=== PATIENT | female | born 1990 | race Caucasian/White ===

== ENCOUNTER 2023-06-16 20:06 | Outpatient (REF) | payer BC, SELFPAY ==
[2023-06-21 11:09] LABS: Age Gdln ACOG Testing Note (.); HPV Aptima Negative (Negative); IGP, Aptima HPV, rfx 16/18,45 Note (.)
== END 2023-06-16 20:07 | disposition home or self-care (01) ==
LOC: LAB 20:06
PROVIDERS: Visit Provider Obstetrics & Gynecology
DX: Z01.419 Encounter for gynecological examination (general) (routine) without abnormal findings (principal)
CPT/HCPCS: 87624; G0145

== ENCOUNTER 2023-10-20 14:43 | Emergency (ER) | payer BC, SELFPAY ==
[2023-10-20 14:49] VITALS: BP 161/90; PULSE 87; TEMP 36.8; O2SAT 99; BMI 31.6
--- OUTSIDE RECORDS SUMMARY | 2023-10-20 14:57 | XMS_ITS | CCD ---
Author Organization [facility] Care Team Providers Care Mold Sprayer Name Role Phone Debo Pedro Unavailable Unavailable Unavailable Primary Care Provider Bola Fowler Unavailable DR DEBO PEDRO Admitting Unavailable DR DEBO PEDRO Attending Unavailable DR VENKAT SWANN Primary Care Unavailable DR DEBO PEDRO Consulting Unavailable MEMO JIMENEZ Attending Unavailable MEMO JIMENEZ Attending Unavailable DEBO PEDRO Attending Unavailable MEMO JIMENEZ Attending Unavailable MEMO JIMENEZ Attending Unavailable Allergies Allergy Classification Reported Allergen(s) Allergy Type Date of Onset Reaction(s) Facility (2 sources) Codeine Drug Allergy 05-26-2013 [facility] (1 source) Codeine Drug Allergy 05-26-2013 [facility] Medications Current Medications Medication Drug Class(es) Dates Sig (Normalized) Sig (Original) citalopram 20 mg oral tablet (1 source) Serotonin Reuptake Inhibitor famotidine 40 mg oral tablet (1 source) Histamine-2 Receptor Antagonist sucralfate 1000 mg oral tablet (1 source) Aluminum Complex Problems Active Problems Problem Classification Problem Date Documented Date Episodic/Chronic Immunizations and screening for infectious disease (1 source) Encounter for screening for human papillomavirus (HPV); Translations: [ENC SCREENING HUMAN PAPILLOMAVIRUS] Onset: 06-09-2022 Episodic Neoplasms of unspecified nature or uncertain behavior (1 source) 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; Translations: [Neoplasm of uncertain behavior of connective and other soft tissue] Other nutritional; endocrine; and metabolic disorders (1 source) Obese class I; Translations: [Obesity (BMI 30.0-34.9)] Onset: 06-25-2020 06-25-2020 Other screening for suspected conditions (not mental disorders or infectious disease) (4 sources) Encounter for screening for malignant neoplasm of cervix; Translations: [ENC SCREENING MALIG NEOPLASM CERV] Onset: 06-07-2022 Episodic Past or Other Problems Problem Classification Problem Date Documented Da te Episodic/Chronic Other and unspecified benign neoplasm (1 source) 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 . Normal [facility] Comment on above: Result Comment: Performed at: WB Performed By: #### [id number] #### [facility] [address] [address] [address] Silvano Aldridge Age Gdln ACOG Testing 30-65 Normal [facility] Comment on above: Performed By: #### [id number] #### [facility] [address] [address] [address] Silvano Aldridge DIAGNOSIS: Comment Normal [facility] Comment on above: Result Comment: NEGATIVE FOR INTRAEPITHE LIAL LESION OR MALIGNANCY. CELLULAR CHANGES ASSOCIATED WITH INFLAMMATION ARE PRESENT. THIS SPECIMEN WAS RESCREENED PART OF [employer] PROGRAM. Performed at: WB Performed By: #### [id number] #### [facility] [address] [address] [address] Silvano Aldridge HPV Aptima Negative Normal Negative [facility] Comment on above: Result Comment: This nucleic acid amplif ication test detects fourteen high-risk HPV types (16,18,31,33,35,39,45,51,52,56,58,59,66,68) without differentiation. Performed at: =G Performed By: #### [id number] #### [facility] [address] [address] [address] Silvano Aldridge HPV Genotype Reflex Comment Normal [facility] Comment on above: Result Comment: Criteria not met, HPV Ge notype not performed. Performed at: WB Performed By: #### [id number] #### [facility] [address] [place] [address] Dr. Silvano Aldridge Methodology: Comment Normal [facility] Comment on above: Result Comment: This liquid based ThinPr ep(R) pap test was screened with the use of an image guided system. Performed at: WB Performed By: #### [id number] #### [facility] [address] [place] [address] Dr. Silvano Aldridge Note: Comment Normal [facility] Comment on above: Result Comment: The Pap smear is a scree portia test designed to aid in the detection of premalignant and malignant conditions of the uterine cervix. It is not a diagnostic procedure and should not be used as the sole means of detecting cervical cancer. Both false-positive and false-negative reports do occur. . Performed at: WB Performed By: #### [id number] #### [facility] [address] [place] [address] Dr. Silvano Aldridge Performed by: Comment Normal [facility] Comment on above: Result Comment: Cecelia Chin Cytotechn ologist (ASCP) Performed at: WB Performed By: #### [id number] #### [facility] [address] [place] [address] Dr. Silvano Aldridge QC reviewed by: Comment Normal [facility] Comment on above: Result Comment: Louis Brock Senior Business Broker (ASCP) Performed at: WB Performed By: #### [id number] #### [facility] [address] [place] [address] Dr. Silvano Aldridge Specimen adequacy: Comment [facility] Comment on above: Result Comment: Satisfactory for evaluat ion. Endocervical and/or squamous metaplastic cells (endocervical component) are present. Performed at: WB Performed By: #### [id number] #### [facility] [address] [place] [address] Dr. Silvano Aldridge [facility] 06-02-2018 # of Vials 1 Invalid Interpretation Code [facility] Comment on above: Performed By: #### [id number] ####[facility] [id number] [place] [address] Baby MRN UNAVAILABLE Invalid Interpretation Code [facility] Comment on above: Performed By: #### [id number] ####[facility] [address] [place] [address] Screen Interp Negative Normal [facility] Comment on above: Performed By: #### [id number] ####[facility] [address] [place] [address] Neg Control 0 [facility] Comment on above: Performed By: #### [id number] ####[facility] [address] [place] [address] Patient Reaction 0 Normal [facility] Comment on above: Performed By: #### [id number] ####[facility] [address] [place] [address] Pos Control m+ Normal [facility] Comment on above: Performed By: #### [id number] ####[facility] [address] [place] [address] Vital Signs Date Time Vital Sign Value Performing Clinician Facility 05-28-2021 11:40-0500 Body height 165.1 cm Bola Donn Other [employer] Other 05-28-2021 11:40-0500 Body mass index (BMI) [Ratio] 34.28 kg/m2 Bola Donn Other [facility] Other 05-28-2021 11:40-0500 Body weight 93.44 kg Bola Donn Other [facility] [facility] Other 06-25-2020 11:19-0500 BMI (Body Mass Index) 34.28 kg/m2 [facility] 06-25-2020 11:19-0500 Body Temperature 98.2 [degF] [facility] 06-25-2020 11:19-0500 Body weight 93.44 kg [facility] 06-25-2020 11:19-0500 BP Diastolic 94 mm[Hg] [facility] tem 06-25-2020 11:19-0500 BP Systolic 121 mm[Hg] [facility] 06-25-2020 11:19-0500 Height 165.1 cm [facility] 06-25-2020 11:19-0500 Pulse (Heart Rate) 71 /min [facility] Encounters Encounter Date Encounter Type Care Provider Facility Start: 10-10-2023 End: 10-10-2023 ambulatory MEMO JIMENEZ Not Available Start: 09-12-2023 End: 09-12-2023 ambulatory MEMO BARBARA Not Available Start: 08-11-2023 End: 08-11-2023 ambulatory MEMO BARBARA Not Available Start: 07-14-2023 End: 07-14-2023 ambulatory MEMO BARBARA Not Available Start: 06-16-2023 End: 06-16-2023 ambulatory DEBO PEDRO Not Available Start: 06-07-2022 End: 06-07-[address] DEBO PEDRO Facility: Start: 05-28-2021 End: 05-28-2021 ambulatory Bola Pop Other [facility] [employer] Other Start: 05-28-2021 Office outpatient ne w 45 minutes Bola Pop [facility] Start: 06-25-2020 End: 06-25-2020 Office outpatient new 30 minutes Bonny Clark Work Phone: [facility] Comment on above: 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) Start: 06-02-2018 End: 06-03-2018 Patient encounter procedure Debo Pedro Facility:[facility] Plan of Treatment Date Care Activity Detail Author Start: 03-18-2020 Influenza vaccination INFLUENZA VACC INE (#1) [facility] Start: 2009 Screening for malign ant neoplasm of cervix CERVICAL CANCER SCREENING DISCUSSION [facility] Start: 2007 Third diphtheria, te tanus and acellular pertussis (DTaP) vaccination TDAP (ADULT) [facility] Start: 2006 Tetanus vaccination TETANUS [facility] Start: 2001 HIV screening HIV SCREENING DISCUSSION [facility] Start: 1988 Hepatitis C antibody , confirmatory test HEPATITIS C VIRUS SCREENING [facility] Payers Date Payer Category Payer Unknown [employer] [place] [id number] 2019-Present 1988 Unknown [id number] 1986 Unknown [id number] 1986 Unknown [id number] 1986 Unknown [id number] 1986 Unknown [id number] 1986 Unknown [id number] 1961 [facility] [id number] Social History Date Type Detail Facility [facility]: [facility] Start: 06-25-2020 Tobacco use and exposure Never used [facility] Start: 06-25-2020 Alcohol intake Current drinke r of alcohol (finding) [facility] Sex Assigned At Not on file [facility] Evaluation note Note Date & Type Note Facility Evaluation note [facility] [employer] Other History general Narrative - Reported Note Date & Type Note Facility History general Narrative - Reported [facility] [employer] Other Summary Purpose Family History No Family History Records FoundNo Family History Records FoundNo Family History Records Found Advance Directives No Advanced Directives Records FoundNo Advanced Directives Records FoundNo Advanced Directives Records Found History of Present Illness * Bonny Clark MD - 06/25/2020 11:00 AM EST Subjective: Marlys Condon is an 30 y.o. female who presents for evaluation of a.Lesion on forehead. Pt states that she had seen dermatology about this issue 3-4 years ago, but they told her it could possibly be bone . Pt states that sometimes it seems to be bigger than it is right now. Pt c/o soreness and headaches and states it has grown. She denies history of trauma to the area Allergies Allergen Reactions Codeine Other reaction(s): Stomach pains No current outpatient medications on file. No current facility-administered medications for this visit. No past medical history on file. No past surgical history on file. Family History Problem Relation Age of Onset Breast Cancer Other Grandma& Great Aunt Social History Socioeconomic History Marital status: Spouse name: Not on file Number of children: Not on file Years of education: Not on file Highest education level: Not on file Occupational History Not on file Social Needs Financial resource strain: Not on file Food insecurity Worry: Not on file Inability: Not on file Transportation needs Medical: Not on file Non-medical: Not on file Tobacco Use Smoking status: Former Smoker Smokeless tobacco: Never Used Substance and Sexual Activity Alcohol use: Yes Drug use: Not Currently Sexual activity: Not on file Lifestyle Physical activity Days per week: Not on file Minutes per session: Not on file Stress: Not on file Relationships Social connections Talks on phone: Not on file Gets together: Not on file Attends mormon service: Not on file Active member of club or organization: Not on file Attends meetings of clubs or organizations: Not on file Relationship status: Not on file Intimate partner violence Fear of current or ex partner: Not on file Emotionally abused: Not on file Physically abused: Not on file Forced sexual activity: Not on file Other Topics Concern Not on file Social History Narrative Not on file Review of Systems Pertinent items are noted in HPI. General Plastics Review of Systems: Do you have any of the following: Chills, Fatigue, Fever or Night Sweats: no. Ear pain or eye discharge: no. Hearing loss or visual changes: no. Sore throat or chronic cough: no. Shortness of breath: no. Chest pain, swelling, or heart palpitations: no. Abdominal pain: no. Constipation or diarrhea: no. Heartburn or Nausea: no. Rash or skin problems: no. Dizziness or numbness: no. Headaches or Migraines: no. Seizures: no. Joint pain, joint swelling or muscle weakness: no. Bruise or bleed easily: no. Any swollen lymph nodes: no. Objective: BP (!) 121/94 (BP Location: Left arm, BP Position: Sitting) Pulse 71 Temp 98.2 F (36.8 C) (Temporal) Ht 1.651 m (5' 5 ) Wt 93.4 kg (206 lb) BMI 34.28 kg/m Smoking Status Former Smoker A subcutaneous mass of the mid forehead which is firm to palpation. The mass appears to be fixed to the bone. The overlying skin is intact Assessment: Mass of mid forehead which is adjacent to bone Rule out chondroma versus subfascial lipoma Plan: We'll obtain an MRI of the site with a without contrast to fully assess the mass prior to proceeding with any surgical intervention * Crys Todd - 06/25/2020 11:00 AM EST General Plastics Review of Systems: Do you have any of the following: Chills, Fatigue, Fever or Night Sweats: no. Ear pain or eye discharge: no. Hearing loss or visual changes: no. Sore throat or chronic cough: no. Shortness of breath: no. Chest pain, swelling, or heart palpitations: no. Abdominal pain: no. Constipation or diarrhea: no. Heartburn or Nausea: no. Rash or skin problems: no. Dizziness or numbness: no. Headaches or Migraines: no. Seizures: no. Joint pain, joint swelling or muscle weakness: no. Bruise or bleed easily: no. Any swollen lymph nodes: no. 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 DATE CREATED AUTHOR AUTHOR'S ORGANIZ ATION 06/17/2022 [facility] DATE CREATED AUTHOR AUTHOR'S ORGANIZ ATION 10/10/2023 [facility] EPIC Reason for Visit (unrecogniz ed section and content) Reason Comments Skin Lesion Lesion on forehead. Pt states that she had seen dermatology about this issue 3-4 years ago, but they told her it could possibly be bone . Pt states that sometimes it seems to be bigger than it is right now. Pt c/o soreness and headaches and states it has grown. FOR RECORDS PERTAINING TO PATIENTS WHO ARE OR HAVE BEEN ENROLLED IN A CHEMICAL DEPENDENCY/SUBSTANCEABUSE PROGRAM, SOME INFORMATION MAY BE OMITTED. This clinical summary was aggregated from multiple sources. Caution should be exercised in using it in the provision of clinical care. This summary normalizes information from multiple sources, and as a consequence, information in this document may materially change the coding, format and clinical context of patient data. In addition, data may be omitted in some cases. CLINICAL DECISIONS SHOULD BE BASED ON THE PRIMARY CLINICAL RECORDS. [facility] [employer] [facility]. provides no warranty or guarantee of the accuracy or completeness of information in this document.
--- NOTE | 2023-10-20 15:07 | ED.WOUNDLAC1 ---
HPI - Wound/Laceration General Chief Complaint: Wound/Laceration Stated Complaint: LEFT HAND INJURY Time Seen by Provider: 10/20/23 14:52 Source: patient Mode of arrival: walk-in Limitations: no limitations History of Present Illness HPI narrative: Patient is a 33-year-old female presents to the emergency department for a small laceration to the palm of the left hand. She is right-hand dominant. She states prior to arrival she was using a knife to open a jar when she stabbed herself in the palm of the hand. She went to urgent care for the 1 cm laceration in her palm but was told that she has too many nerves in the hand for the urgent care provider to feel comfortable placing sutures. Unknown last tetanus. No active bleeding at time of my evaluation. Related Data Home Medications ?Medication ?Instructions ?Recorded ?Confirmed fluoxetine 20 mg tablet 20 mg PO QDAY 10/20/23 10/20/23 Allergies Allergy/AdvReac Type Severity Reaction Status Date / Time codeine AdvReac Gastrointestinal Verified 10/20/23 14:48 Upset Review of Systems ROS Constitutional Denies: fever or chills Ears, nose, mouth, and throat Denies: throat pain or nasal congestion Cardiovascular Denies: chest pain Respiratory Denies: shortness of breath Gastrointestinal Denies: nausea or vomiting Integumentary/Breast Denies: rash Neurological Denies: headache Hematologic/Lymphatic Denies: easy bruising or easy bleeding Exam Narrative Exam Narrative: Gen.: Awake, alert, in no distress Head: Normocephalic, atraumatic ENT: Moist mucous membranes Respiratory: No respiratory distress Extremities: Moves extremities equally, 1 cm laceration to the palm of the left hand, no active bleeding, no large gaps or subcutaneous tissue exposure. Normal flexion and extension of the fingers, no decrease in sensation, no deficit in movement of the fingers Psych: Normal mood and affect Neuro: No focal neuro deficit Skin: Warm, dry, intact Constitutional Vital Signs, click to edit/add: Last Vital Signs Temp 98.2 F 10/20/23 14:49 Pulse 87 10/20/23 14:49 Resp 14 10/20/23 14:49 BP 161/90 H 10/20/23 14:49 Pulse Ox 99 10/20/23 14:49 O2 Del Method Room Air 10/20/23 14:49 Course Vital Signs Vital signs: Vital Signs Temperature 98.2 F 10/20/23 14:49 Pulse Rate 87 10/20/23 14:49 Respiratory Rate 14 10/20/23 14:49 Blood Pressure 161/90 H 10/20/23 14:49 Pulse Oximetry 99 10/20/23 14:49 Oxygen Delivery Method Room Air 10/20/23 14:49 Temperature 98.2 F 10/20/23 14:49 Pulse Rate 87 10/20/23 14:49 Respiratory Rate 14 10/20/23 14:49 Blood Pressure 161/90 H 10/20/23 14:49 Pulse Oximetry 99 10/20/23 14:49 Oxygen Delivery Method Room Air 10/20/23 14:49 MDM - Wound/Laceration MDM Narrative Medical decision making narrative: Laceration repaired without difficulty. Please see procedure note for details. Tetanus updated in the ER. Follow-up with PCP for suture removal in 7 to 10 days. Return to the ER if symptoms change or worsen. Laceration repair: Done under sterile conditions. The use of Shur-Clens prep the area. Local injection with lidocaine 1% was used, approximately 3 cc. The wound was irrigated copiously with normal saline. The wound was explored there was no evidence of foreign material. The laceration was approximated with 3-0 nylon. 3 simple interrupted sutures were placed. Patient tolerated the procedure well. The patient was neurovascularly intact post. the patient had bacitracin applied to the laceration and a dry sterile dressing was place. The patient will need to follow-up in the next 7-10 days for removal Medical Records Attestation: I reviewed the patient's medical records. Discharge Plan Discharge Stand Alone Forms: Portal Instructions Chief Complaint: Wound/Laceration Clinical Impression: Laceration of hand, left Patient Disposition: Home, Self-Care Time of Disposition Decision: 15:07 Condition: Good Prescriptions / Home Meds: No Action fluoxetine 20 mg tablet 20 mg PO QDAY Print Language: Romansh Instructions: Laceration (ED) Additional Instructions: Sutures removed in 7-10 days with your PCP Referrals: Physician,Non-Staff, MD [Primary Care Provider] - 1 week
[2023-10-20] MEDS: ADACEL DIPH,PERTUSS(ACELL),TET VAC/PF 0.5 ML ADULT SYRINGE IM (15:28)
[2023-10-20] MEDS: LIDOCAINE HCL 1% 100 MG/10 ML MDV INJ (15:30)
[2023-10-20] MEDS: BACITRACIN 0.9 GM PACKET 1 PACKET TOPICAL (15:31)
== END 2023-10-20 15:32 | disposition home or self-care (01) ==
PROVIDERS: Emergency Provider Emergency Medicine Emergency Medical Services
DX: S61.412A Laceration without foreign body of left hand, initial encounter (principal); W26.0XXA Contact with knife, initial encounter; Z23 Encounter for immunization
CPT/HCPCS: 12001; 90471; 90715; 99284

== ENCOUNTER 2024-04-06 09:24 | Outpatient (OUT) | payer BC, SELFPAY ==
--- NOTE | 2024-04-06 09:28 | MM_ITS ---
Patient Name: EMANUEL LEE MR#: [id number] : 1990 Exam Date: 04/06/2024 Ordering Doctor: DR BECKY WATKINS RADIOLOGY REPORT PROCEDURE: MM TOMOSYNTHESIS SCREENING BI COMPARISON: MG MAMM DIAGNOSTIC 3D SIMONA CAD, 04/21/2021. INDICATIONS: Screening for malignant neoplasm Calculator Name NCI Breast Cancer Risk Assessment Tool 5 Year Breast Cancer Risk 0.30% Lifetime Breast Cancer Risk 10.40% Personal Breast Cancer No Personal Ovarian Cancer No Treatments None Family Cancers Grandmother-maternal with breast cancer at age 60; Aunt-maternal with breast cancer at age 50; Grandfather-paternal with lung cancer at age 60. LOCATION: [facility] BREAST COMPOSITION: The breasts are heterogeneously dense,which may obscure small masses. FINDINGS: DIAGNOSTIC CATEGORY 1--NEGATIVE. NO CHANGE FROM COMPARISON ASSESSMENT. Scattered benign-appearing lymph nodes are present. RIGHT BREAST: No significant suspicious finding. LEFT BREAST: No significant suspicious finding. RECOMMENDATIONS: CLINICAL EVALUATION. PLEASE NOTE: A NORMAL MAMMOGRAM DOES NOT EXCLUDE THE POSSIBILITY OF BREAST CANCER. A CLINICALLY SUSPICIOUS PALPABLE LUMP SHOULD BE BIOPSIED. Dictated by: Luis Gonzalez MD on 04/06/2024 at 12:13 Approved by: Luis Gonzalez MD on 04/06/2024 at 12:15
== END 2024-04-06 09:25 | disposition home or self-care (01) ==
LOC: MAMMO 09:24
PROVIDERS: PCP Family Medicine; Visit Provider Nurse Practitioner Family
DX: Z12.31 Encounter for screening mammogram for malignant neoplasm of breast (principal); Z80.3 Family history of malignant neoplasm of breast; Z80.1 Family history of malignant neoplasm of trachea, bronchus and lung
CPT/HCPCS: 77063; 77067